=== PATIENT | female | born 1965 | race Caucasian/White ===

== ENCOUNTER 2019-02-17 08:34 | Emergency (ER) | payer BC ==
[2019-02-17 08:50] VITALS: BP 146/92
--- NOTE | 2019-02-17 10:23 | UC ---
Abdominal Pain Female HPI - HPI Summary HPI Summary: PATIENT HAS A HISTORY OF IBS. STATES THAT OVER THE PAST COUPLE OF DAYS SHE HAS HAD LEFT-SIDED ABDOMINAL PAIN. INITIALLY WAS LEFT UPPER QUADRANT BUT NOW HAS MOVED INTO THE LOWER ABDOMEN. NO URINARY SYMPTOMS. NO BACK PAIN. NO NAUSEA OR VOMITING. NO FEVER. - History of Current Complaint Chief Complaint: UCAbdominalPain Stated Complaint: ABD PAIN Time Seen by Provider: 02/17/19 08:54 Hx Obtained From: Patient Onset/Duration: Gradual Onset, Lasting Days, Still Present Timing: Constant Severity Initially: Moderate Severity Currently: Moderate Pain Intensity: 5 Pain Scale Used: 0-10 Numeric Radiates: No Character: Cramping Aggravating Factor(s): Nothing Alleviating Factor(s): Nothing Associated Signs and Symptoms: Negative: Fever, Back Pain, Constipation, Blood in Stool, Urinary Symptoms, Nausea, Vomiting, Diarrhea Allergies/Adverse Reactions: Allergies Allergy/AdvReac Type Severity Reaction Status Date / Time codeine Allergy Rash Verified 02/17/19 08:50 Penicillins Allergy Rash Verified 02/17/19 08:50 PMH/Surg Hx/FS Hx/Imm Hx Cardiovascular History: Hypertension - Surgical History Surgical History: None - Family History Known Family History: Positive: Hypertension - Social History Alcohol Use: None Substance Use Type: None Smoking Status (MU): Former Smoker When Did the Patient Quit Smoking/Using Tobacco: 15 years ago Review of Systems All Other Systems Reviewed And Are Negative: Yes Constitutional: Positive: Negative Respiratory: Positive: Negative Cardiovascular: Positive: Negative Gastrointestinal: Positive: Abdominal Pain. Negative: Vomiting, Diarrhea, Nausea Genitourinary: Positive: Negative Physical Exam Triage Information Reviewed: Yes Appearance: Well-Appearing, No Pain Distress, Well-Nourished Vital Signs: Initial Vital Signs Temp 98.4 F 02/17/19 08:46 Pulse 113 02/17/19 08:46 Resp 18 02/17/19 08:46 BP 146/92 02/17/19 08:46 Pulse Ox 99 02/17/19 08:46 Laboratory Tests 02/17/19 08:59 POC Urine Color Yellow POC Urine Clarity Clear POC Urine pH 7.0 POC Ur Specif Banks 1.010 POC Urine Protein Negative POC Ur Glucose (UA) Negative POC Urine Ketones Negative POC Urine Blood 1+ A POC Urine Nitrite Negative POC Urine Bilirubin Negative POC Urine Urobilinogen 0.2 POC U Leukocyte Esteras Negative Vital Signs Reviewed: Yes Eyes: Positive: Conjunctiva Clear ENT: Positive: Hearing grossly normal Neck: Positive: Supple Respiratory Exam: Normal Cardiovascular Exam: Normal Abdomen Description: Positive: Soft. Negative: CVA Tenderness (R), CVA Tenderness (L), Distended Bowel Sounds: Positive: Present Musculoskeletal: Positive: No Edema Neurological: Positive: Alert Psychological: Positive: Age Appropriate Behavior Skin: Negative: Rashes Diagnostics - Radiology CT ABD/PELVIS W/O CONTRAST Radiology Interpretation Completed By: Radiologist Summary of Radiographic Findings: 1. Distal sigmoid colon diverticulitis without perienteric abscess or resulting bowel. obstruction. Interval follow- up suggested after therapy to assess for resolution and. exclude a neoplastic colonic lesion. 2. Negative for urolithiasis or hydronephrosis. No conspicuous focal renal lesions within. limits of noncontrast CT. Abd Pain Female Course/Dx - Course Course Of Treatment: CT SCAN TODAY SHOWED SIGMOID DIVERTICULITIS. WILL TREAT WITH 10 DAYS OF CIPRO AND FLAGYL. PATIENT WILL FOLLOW-UP WITH [facility] TO THE ER IF SYMPTOMS WORSEN. REGARDING THE HEMATURIA DISCOVERED TODAY, SHE HAS BEEN ADVISED TO FOLLOW-UP WITH HER PCP FOR RECHECK OF HER URINE IN ABOUT 2 WEEKS. IF IT IS PERSISTENT SHE MAY BENEFIT FROM UROLOGY EVALUATION. - Differential Dx/Diagnosis Provider Diagnosis: Diverticulitis Discharge - Sign-Out/Discharge Documenting (check all that apply): Patient Departure All imaging exams completed and their final reports reviewed: Yes - Discharge Plan Condition: Stable Disposition: HOME Prescriptions: Ciprofloxacin TAB* [Cipro 500 MG TAB*] 500 mg PO BID #20 tab metroNIDAZOLE [Flagyl 500 MG TAB] 500 mg PO TID #30 tab Patient Education Materials: Diverticulitis (ED) Referrals: Adan Masters, [employer] [Primary Care Provider] - If Needed Additional Instructions: CT SCAN TODAY SHOWS SIGMOID COLON DIVERTICULITIS. TAKE THE ANTIBIOTICS PRESCRIBED FOR THE FULL 10 DAYS. STAY WELL HYDRATED. AVOID FOODS THAT COULD GET STUCK IN THE POCKETS INCLUDING THINGS LIKE NUTS, SEEDS, CORN, POPCORN. CALL GI TODAY TO SCHEDULE A FOLLOW-UP APPOINTMENT. GO TO THE ER WITHOUT FAIL IF YOU DEVELOP WORSENING PAIN, BLOODY DIARRHEA, FEVER, NAUSEA/VOMITING OR ANY OTHER CONCERNING SYMPTOMS. [facility] Address: [address], [place] [address] YOU DID HAVE SOME BLOOD IN YOUR URINE TODAY. FOLLOW-UP WITH YOUR PCP FOR REPEAT URINE TEST IN ABOUT 2 WEEKS TO MAKE SURE IT HAS CLEARED. IF IT PERSISTS YOU MAY BENEFIT FROM UROLOGY EVALUATION. - Billing Disposition and Condition Condition: STABLE Disposition: Home
== END 2019-02-17 10:38 | disposition home or self-care (01) ==
LOC: UCEAST 08:34
DX: K57.92 Diverticulitis of intestine, part unspecified, without perforation or abscess without bleeding (principal); I10 Essential (primary) hypertension; Z87.891 Personal history of nicotine dependence; Z88.5 Allergy status to narcotic agent; Z88.0 Allergy status to penicillin
CPT/HCPCS: 74176; 81003; 99212; G0463